=== PATIENT | male | born 1990 | race Caucasian/White ===

== ENCOUNTER 2018-01-17 17:16 | Emergency (ER) | payer BC ==
--- NOTE | 2018-01-17 17:51 | ED.PDOC ---
History of Present Illness - General Chief Complaint: Neck Injury/Pain Stated Complaint: Posteriot Neck Pain x 5 days Time Seen by Provider: 01/17/18 17:41 Source: patient Exam Limitations: no limitations - History of Present Illness Initial Comments: Eugenio Stanton 27 y/o male stated had lifted weights -bench press during his work out 5 days ago and had onset of sharp neck pains radiating to back of his head aggravated on bending down and also lifting stuff at work.Denies any weakness,numbness,dizziness ,nausea/vomiting. Timing/Duration: other - 5 days ago Severity: moderate Improving Factors: nothing Worsening Factors: movement Associated Symptoms: other - see hpi Allergies/Adverse Reactions: Allergies NO KNOWN ALLERGY Allergy (Unverified 01/17/18 17:36) Home Medications: Ambulatory Orders Baclofen 20 mg PO BID #14 tab 01/17/18 Diclofenac Sodium [Diclofenac Sodium Dr] 75 mg PO BID #20 tab 01/17/18 Review of Systems - Review of Systems Constitutional: States: no symptoms reported EENTM: States: no symptoms reported Respiratory: States: no symptoms reported Cardiology: States: no symptoms reported Gastrointestinal/Abdominal: States: no symptoms reported Musculoskeletal: States: see HPI, neck pain Neurological: States: no symptoms reported Past Medical History (General) - Patient Medical History Hx Seizures: No Hx Stroke: No Hx Asthma: No Hx of COPD: No Hx Cardiac Disorders: No Hx Congestive Heart Failure: No Hx Pacemaker: No Hx Hypertension: No Hx Diabetes: No Hx Cancer: No Hx Hepatitis C: No Hx MRSA: No Surgical History: no surgical history - Vaccination History Hx Tetanus, Diphtheria Vaccination: Yes - Social History Hx Tobacco Use: Yes Hx Chewing Tobacco Use: No Hx Alcohol Use: No Hx Substance Use: No Hx Substance Use Treatment: No Hx Depression: No Feels Threatened In Home Enviroment: No Feels Threatened In a Relationship: No Hx Physical Abuse: No Hx Emotional Abuse: No Hx Suspected Abuse: No Family Medical History - Family History Grandparents Family History: Unknown Physical Exam - Physical Exam General Appearance: Alert, Comfortable, No apparent distress Eye Exam: bilateral normal Ears, Nose, Throat: hearing grossly normal, normal ENT inspection Neck: normal inspection, limited range of motion - because of pain paraspinal muscle area, tender lateral, other - no midline tenderness,pain on pushing down head Respiratory: chest non-tender, lungs clear Cardiovascular/Chest: normal peripheral pulses, regular rate, rhythm, no murmur Peripheral Pulses: radial,right: 2+, radial,left: 2+ Gastrointestinal/Abdominal: normal bowel sounds, non tender, soft, no organomegaly Back Exam: no CVA tenderness, no vertebral tenderness Extremity: non-tender, no pedal edema, no calf tenderness Neurologic: no motor/sensory deficits, alert, oriented x 3 Skin Exam: normal color, warm/dry Progress - Progress Progress: 01/17/18 19:40 Vital Signs - 8 hr 01/17/18 01/17/18 17:37 18:33 Temperature 97.4 F L Pulse Rate [L 92 H 70 Arm] Respiratory 20 18 Rate Blood Pressure 131/48 145/80 [L Arm] O2 Sat by Pulse 99 98 Oximetry - EKG/XRAY/CT CT Ordered: Yes - c- spine no acute abnormalities Departure - Departure Clinical Impression: Neck pain, bilateral posterior Strain of neck muscle Qualifiers: Encounter type: initial encounter Qualified Code(s): S16.1XXA - Strain of muscle, fascia and tendon at neck level, initial encounter Time of Disposition: 19:49 Disposition: Discharge to Home or Self Care Condition: Fair Departure Forms: ED Discharge - Pt. Copy, Patient Portal Self Enrollment Instructions: DI for Neck Sprain, DI for Cervical Muscle Strain Referrals: BEVERLEY KHAN [employer] [Primary Care Provider] - 1-2 Weeks Prescriptions: Baclofen 20 mg PO BID #14 tab Diclofenac Sodium [Diclofenac Sodium Dr] 75 mg PO BID #20 tab Home Medications: Ambulatory Orders Baclofen 20 mg PO BID #14 tab 01/17/18 Diclofenac Sodium [Diclofenac Sodium Dr] 75 mg PO BID #20 tab 01/17/18 Additional Instructions: Follow up with primary Md 20 January 2018
[2018-01-17] MEDS ORDERED: ORPHENADRINE CITRATE 30 MG/ML AMP IM ONE (17:55)
[2018-01-17] MEDS ORDERED: MORPHINE SULFATE INJ 10 MG/ML VIAL IM ONE (17:55)
[2018-01-17] MEDS ORDERED: DEXAMETHASONE 4 MG TAB PO ONE (17:56)
[2018-01-17 18:35] VITALS: O2SAT 98
[2018-01-17] MEDS ORDERED: KETOROLAC TROMETHAMINE INJ 60 MG/2 ML VIAL IM ONE (18:39)
--- NOTE | 2018-01-17 19:07 | CT ---
EXAM DESCRIPTION: CT CERVICAL SPINE CLINICAL HISTORY: pain COMPARISON: None Available. TECHNIQUE: Contiguous axial images of the cervical spine were obtained followed by reconstruction images.This exam was performed according to our departmental dose-optimization program, which includes automated exposure control, adjustment of the mA and/or kV according to patient size and/or use of iterative reconstruction technique. FINDINGS: There is no acute fracture or subluxation. The prevertebral soft tissues are within normal limits. Curvature of the cervical spine could be secondary to patient's positioning versus scoliosis. IMPRESSION: No acute fracture or subluxation. Curvature of the cervical spine could be secondary to patient's positioning versus scoliosis. Electronically signed by: Peter Andersen MD 01/17/2018 7:06 PM CDT
[2018-01-17] MEDS ORDERED: HYDROCOD/APAP 7.5/325 (ER DISP) #3 TAB PO ONE (19:45)
[2018-01-17 20:04] VITALS: TEMP 97.1
[2018-01-17 20:05] VITALS: BP 139/71
== END 2018-01-17 20:06 | disposition home or self-care (01) ==
LOC: ER 17:16
DX: S16.1XXA Strain of muscle, fascia and tendon at neck level, initial encounter (principal); Z87.891 Personal history of nicotine dependence; X50.0XXA Overexertion from strenuous movement or load, initial encounter; Y93.B3 Activity, free weights
CPT/HCPCS: 72125; J1885; J2270; J2360; J8540